=== PATIENT | female | born 1965 | race Two or more races ===

== ENCOUNTER 2025-03-25 21:03 | Inpatient (IN) | payer BC, SELFPAY ==
[2025-03-25 21:06] VITALS: BP 136/56; PULSE 125; RESP 24; TEMP 38.4; O2SAT 93
[2025-03-25 21:12] VITALS: PULSE 130; O2SAT 94; BMI 43.1
--- NOTE | 2025-03-25 21:33 | PD.EDFEVER ---
ED Fever RME/HPI General Chief Complaint: Urogenital-Female Stated Complaint: UTI Time Seen by Provider: 03/25/25 21:32 Arrival date/time: 03/25/25 21:03 RME / HPI RME / HPI Narrative: See MDM for Dr. Cosme's HPI Documentation. Related Data Home Medications ?Medication ?Instructions ?Recorded ?Confirmed azelastine 0.05 % eye drops 1 drp ophthalmic (eye) QDAY PRN 03/26/25 03/26/25 Allergies ergocalciferol (vitamin D2) 1,250 1,250 mcg PO .weekly 03/26/25 03/26/25 mcg (50,000 unit) capsule metformin 500 mg tablet 500 mg PO BID 03/26/25 03/26/25 naproxen 500 mg tablet 500 mg PO Q12H PRN pain 03/26/25 03/26/25 Allergies Allergy/AdvReac Type Severity Reaction Status Date / Time No Known Allergies Allergy Verified 03/26/25 08:58 Review of Systems Review of Systems Systems Reviewed: All systems reviewed, normal except as documented Past Medical History Past Medical History ENDOCRINE: Positive Diabetes Mellitus Type 2 Physical Exam Narrative Physical exam: See MDM for Dr. Cosme's Physical Exam Documentation. ED Exam Narrative Physical exam: See MDM for Dr. Cosme's Physical Exam Documentation. Course Course Course Narrative: CXR was ordered for determining the etiology of shortness of breath. Quality Measures none Orders Category Date Time Status Bedside COVID-19 Antigen Test NOW Care 03/25/25 21:33 Active Bedside Influenza A&B Antigen Test NOW Care 03/25/25 21:33 Completed EKG (ED ONLY) *Do not use* NOW Care 03/25/25 21:36 Completed Saline [Insert IV] NOW Care 03/25/25 21:33 Completed Straight [In and Out Catheter] X1 Care 03/25/25 21:[address] chest abdomen pelvis wo Stat Exams 03/25/25 21:36 Completed EKG (ED Only) Stat Exams 03/25/25 21:35 Draft XR chest 1V portable Stat Exams 03/25/25 21:36 Completed Amylase Stat Lab 03/26/25 00:55 Completed BNP [B-Type Natriuretic Peptide] Stat Lab 03/26/25 00:15 Completed Beta Hydroxybutyrate Stat Lab 03/26/25 00:55 Completed Bilirubin,Direct Stat Lab 03/26/25 00:55 Completed Blood Culture (Lab) Stat Lab 03/26/25 00:15 Results CBC Stat Lab 03/26/25 00:15 Completed CMP [Comprehensive Metabolic Panel] Stat Lab 03/26/25 00:55 Completed CRP [C-Reactive Protein] Stat Lab 03/26/25 00:55 Completed ESR [Sed Rate (ESR)] Stat Lab 03/26/25 00:15 Completed Lactate (Lactic Acid) Stat Lab 03/26/25 00:15 Completed Lipase Stat Lab 03/26/25 00:55 Completed Magnesium Stat Lab 03/26/25 00:55 Completed Procalcitonin Stat Lab 03/26/25 00:55 Completed TSH [Thyroid Stimulating Hormone] Stat Lab 03/26/25 00:55 Completed Troponin I Stat Lab 03/26/25 00:55 Completed UA, C/S IF [Urinalysis, C/S if Indicated] Stat Lab 03/26/25 00:30 Completed Urine Culture Stat Lab 03/26/25 00:30 Received Acetaminophen Ivpb [Ofirmev Inj] Med 03/25/25 21:33 Discontinued 1,000 mg in 100 ml IV X1 Albuterol/Ipratr Rt Kathy [Duoneb Rt Kathy] Med 03/25/25 21:34 Discontinued 3 ml INH X1 ONE Ketorolac Inj [Toradol Inj] Med 03/25/25 21:33 Discontinued 30 mg IVP X1 ONE Magnesium Sulfate 2 GM Ivpb [Magnesium Sulfate Ivpb] Med 03/26/25 02:27 Discontinued 2 gm in 50 ml IV X1 MethylPREDNISolone.* [SoluMEDROL Inj] Med 03/25/25 21:35 Discontinued 125 mg IVP X1 ONE Morphine Inj Med 03/25/25 21:34 Discontinued 4 mg IVP X1 ONE Ondansetron Inj [Zofran Inj] Med 03/25/25 21:33 Discontinued 4 mg IVP X1 ONE Sodium Chloride 0.9% 1000 ml [Ns] 1,000 ml Med 03/25/25 21:33 Discontinued IV 999 mls/hr Sodium Chloride 0.9% 1000 ml [Ns] 1,000 ml Med 03/25/25 21:33 Discontinued IV 999 mls/hr Sodium Chloride 0.9% 1000 ml [Ns] 1,000 ml Med 03/25/25 21:34 Discontinued IV 999 mls/hr cefTRIAXone/D5w 1gm IV premix [Rocephin/D5w 1gm IV Med 03/25/25 21:33 Discontinued premix] 1 gm in 50 ml IV X1 Vital Signs Vital signs: Vital Signs Temperature 101.2 F H 03/25/25 21:06 Pulse Rate 125 H 03/25/25 21:06 Respiratory Rate 24 H 03/25/25 21:06 Blood Pressure 136/56 H 03/25/25 21:06 Pulse Oximetry (%) 93 L 03/25/25 21:06 Oxygen Delivery Method Room Air 03/25/25 21:06 Fever MDM Narrative MDM Narrative:: Scribe Attestation: I, Sheela Hagen, am scribing for and in the presence of Dr. Cosme. This section includes all my notes and documentations, including HPI, PE, and ED course. Ronen Cosme MD HPI: 60 y/o female with Hx of Type II DM BIBA from home here with fever, chills, body aches, and lower back pain x 1 week. No other complaints. ROS: All negative except as documented in HPI. Physical Exam: General: Alert and oriented. Appearance of malaise noted. Fever noted. Eyes: Conjunctivae and lids clear. ENT: No nasal congestion. Neck: Supple. Heart: Sinus tachycardia noted. Lungs: No respiratory distress. Decreased air movement with rhonchi. Abdomen: Soft with equivocal tenderness, difficult to localize. Normal bowel sounds. No distension. No rebound or guarding. Back: Equivocal CVA tenderness. Skin: Warm and dry. Neuro: Alert and oriented X 3. I reviewed EMS notes. I reviewed all diagnostic test results: My interpretation of the EKG is: Sinus tachycardia (119 bpm) with nonspecific ST-T changes. My interpretation of the chest x-ray is NAD. My review of the Chest/Abdomen/Pelvis CT report is: Bilateral prominent perinephric stranding suspicious for urinary tract infection. Blood tests remarkable for WBC 15, Glu 371, Mg 1.5, LA 4.6, CRP 13.5, Procalcitonin 6.02, and Troponin 0.20. UA showed positive nitrite, positive leuokocyte esterase, 424 RBC, 3264 WBC, and 4+ bacteria. Covid/Influenza: Negative. At this point, diagnoses include: Sepsis Pyelonephritis Troponin elevation Hyperglycemia Hypomagnesemia Bronchospasm Treatment here included: 3 L of IVF Toradol 30 mg IV and Tylenol 1000 mg IV DuoNeb and Solumedrol 125 mg IV Rocephin 1 gram IV Morphine 4 mg IV and Zofran 4 mg IV 0317: I discussed the case with our hospitalist. About the presentation and exam and diagnostics and treatments here. And need of further care in the hospital. Will accept the patient. Ronen Cosme MD Patient data External records reviewed:: [facility] previous records (No recent ED records available for review.) and EMS form Clinical information provided by:: patient and EMS Social determinants that could affect healthcare access:: none Patient has the following chronic illnesses:: Type II DM How is presenting disease/condition affected by chronic disease/condition?: exacerbated by Evaluation data The following diagnostics were reviewed and interpreted by me:: lab results, radiology exam(s) and EKG tracing(s) (My interpretation of the EKG is: Sinus tachycardia (119 bpm) with nonspecific ST-T changes. Ronen Cosme MD) Lab and/or radiology exams considered but not ordered:: None Interpretation Summary: I reviewed all diagnostic test results: My interpretation of the EKG is: Sinus tachycardia (119 bpm) with nonspecific ST-T changes. My interpretation of the chest x-ray is NAD. My review of the Chest/Abdomen/Pelvis CT report is: Bilateral prominent perinephric stranding suspicious for urinary tract infection. Blood tests remarkable for WBC 15, Glu 371, Mg 1.5, LA 4.6, CRP 13.5, Procalcitonin 6.02, and Troponin 0.20. UA showed positive nitrite, positive leuokocyte esterase, 424 RBC, 3264 WBC, and 4+ bacteria. Covid/Influenza: Negative. Medications / Prescriptions Medications or Prescriptions considered but not ordered:: None Medication administrations:: Medication Administration History Acetaminophen (Acetaminophen 325 Mg Tablet) 650 mg PO Q6H PRN PRN Reason: Fever >100.4 or pain 1-3 Stop: 04/25/25 03:10 Hydrocodone Bitart/Acetaminophen (Hydrocodone/Apap 5/325 Tablet) 1 tab PO Q4HR PRN PRN Reason: PAIN SCALE 4-6 (Moderate Stop: 03/31/25 03:15 Dextrose (Dextrose 50%-Water Inj 50 Ml Syringe) 25 ml IV Q15MIN PRN PRN Reason: BG 50-70 responsive npo pt Stop: 04/25/25 03:15 Dextrose (Dextrose 50%-Water Inj 50 Ml Syringe) 50 ml IV Q15MIN PRN PRN Reason: BG <50 OR BG <70 & pt unresponsive Stop: 04/25/25 03:15 Docusate Sodium (Docusate Sod 100 Mg Capsule) 100 mg PO QDAY PRN; Protocol PRN Reason: CONSTIPATION Stop: 04/25/25 03:10 Enoxaparin Sodium (Enoxaparin Sod Inj 40 Mg/0.4 Ml Syringe) 40 mg SC QDAY [facility] Stop: 04/09/25 08:59 Last Admin: 03/27/25 08:13 Dose: 40 mg Documented By: Admin: 03/26/25 09:50 Dose: 40 mg Documented By: ELVIA Glucagon (Glucagon Inj 1 Mg Vial) 1 mg IM Q15MIN PRN PRN Reason: BG <70, and no IV access Ceftriaxone Sodium 2 gm/ (Sodium Chloride) 50 mls @ 100 mls/hr IV QDAY [facility] Stop: 04/03/25 08:59 Last Admin: 03/27/25 08:13 Dose: 100 mls/hr Documented By: BEBETO Insulin Degludec (Insulin Degludec 5 Unit/0.05 Ml (Per 5 Units)) 20 unit SC QDAY [facility] Stop: 04/27/25 08:59 Insulin Human Lispro (Insulin Lispro (Admelog) 1 Unit/0.01 Ml Unit) 0 unit SC [facility]; Protocol Stop: 04/25/25 11:29 Last Admin: 03/27/25 17:48 Dose: 5 unit Documented By: BEBETO Co-signed By: GLORIA Admin: 03/27/25 11:49 Dose: 5 unit Documented By: BEBETO Co-signed By: GLORIA Admin: 03/27/25 07:51 Dose: 5 unit Documented By: BEBETO Co-signed By: ALEX Admin: 03/26/25 17:52 Dose: 5 unit Documented By: ELVIA Co-signed By: RODNEY Insulin Human Lispro (Insulin Lispro (Admelog) 1 Unit/0.01 Ml Unit) 3 unit SC [facility] Stop: 04/26/25 16:59 Last Admin: 03/27/25 17:49 Dose: 3 unit Documented By: BEBETO Co-signed By: GLORIA Ondansetron HCl (Ondansetron Inj 2 Mg/Ml Inj 2 Ml) 4 mg IVP Q6H PRN; Protocol PRN Reason: NAUSEA OR VOMITING Stop: 04/25/25 03:10 Sennosides (Senna Tablet) 1 tab PO QDAY PRN; Protocol PRN Reason: constipation Stop: 04/25/25 03:10 Discontinued Medications Albuterol/Ipratropium (Albuterol/Ipratropium (Duoneb) Rt Kathy 3 Ml Nebu) 3 ml INH X1 ONE Stop: 03/25/25 21:35 Last Admin: 03/25/25 22:18 Dose: 3 ml Documented By: ELVIA(2) Ceftriaxone Sodium/Dextrose (Rocephin/D5w 1gm Iv Premix) 1 gm in 50 mls @ 100 mls/hr IV X1 ONE Stop: 03/25/25 22:02 Last Infusion: 03/25/25 23:09 Dose: Infused Documented By: Admin: 03/25/25 22:34 Dose: 100 mls/hr Documented By: NITA Sodium Chloride (Ns) 1,000 mls @ 999 mls/hr IV .Q1H1M ONE Stop: 03/25/25 22:33 Last Infusion: 03/25/25 23:12 Dose: Infused Documented By: Admin: 03/25/25 22:09 Dose: 999 mls/hr Documented By: NITA Acetaminophen (Ofirmev Inj) 1,000 mg in 100 mls @ 250 mls/hr IV X1 ONE Stop: 03/25/25 21:56 Last Infusion: 03/25/25 22:34 Dose: Infused Documented By: Admin: 03/25/25 22:10 Dose: 250 mls/hr Documented By: NITA Sodium Chloride (Ns) 1,000 mls @ 999 mls/hr IV .Q1H1M ONE Stop: 03/25/25 22:33 Last Infusion: 03/25/25 23:12 Dose: Infused Documented By: Admin: 03/25/25 22:10 Dose: 999 mls/hr Documented By: NITA Sodium Chloride (Ns) 1,000 mls @ 999 mls/hr IV .Q1H1M ONE Stop: 03/25/25 22:34 Last Infusion: 03/26/25 00:15 Dose: Infused Documented By: Admin: 03/25/25 23:14 Dose: 999 mls/hr Documented By: NITA Magnesium Sulfate (Magnesium Sulfate Ivpb) 2 gm in 50 mls @ 25 mls/hr IV X1 ONE Stop: 03/26/25 04:26 Last Infusion: 03/26/25 05:20 Dose: Infused Documented By: Admin: 03/26/25 03:11 Dose: 25 mls/hr Documented By: NITA Magnesium Sulfate (Magnesium Sulfate Ivpb) 2 gm in 50 mls @ 25 mls/hr IV X1 ONE Stop: 03/26/25 05:36 Last Infusion: 03/26/25 07:33 Dose: Infused Documented By: Admin: 03/26/25 05:33 Dose: 25 mls/hr Documented By: NITA Ceftriaxone Sodium 2 gm/ (Sodium Chloride) 50 mls @ 100 mls/hr IV X1 ONE Stop: 03/26/25 09:29 Last Admin: 03/26/25 09:55 Dose: 100 mls/hr Documented By: ELVIA Insulin Degludec (Insulin Degludec 5 Unit/0.05 Ml (Per 5 Units)) 15 unit SC QDAY [facility] Stop: 04/25/25 08:59 Last Admin: 03/27/25 08:14 Dose: 15 unit Documented By: BEBETO Co-signed By: BRITTANY Admin: 03/26/25 09:50 Dose: 15 unit Documented By: ELVIA Co-signed By: RODNEY Insulin Degludec (Insulin Degludec 5 Unit/0.05 Ml (Per 5 Units)) 5 unit SC X1 ONE Stop: 03/27/25 11:51 Last Admin: 03/27/25 12:21 Dose: 5 unit Documented By: BEBETO Co-signed By: ALEX Insulin Human Lispro (Insulin Lispro (Admelog) 1 Unit/0.01 Ml Unit) 0 unit SC AC [facility]; Protocol Stop: 04/25/25 07:29 Last Admin: 03/26/25 08:30 Dose: 4 unit Documented By: ELVIA Co-signed By: VANGIE Insulin Human Lispro (Insulin Lispro (Admelog) 1 Unit/0.01 Ml Unit) 0 unit SC AC [facility]; Protocol Stop: 04/25/25 11:29 Last Admin: 03/26/25 12:07 Dose: 5 unit Documented By: ELVIA Co-signed By: KAMRAN Ketorolac Tromethamine (Ketorolac Inj 30 Mg/Ml Vial) 30 mg IVP X1 ONE Stop: 03/25/25 21:34 Last Admin: 03/25/25 22:18 Dose: Not Given Documented By: NITA Non-Admin Reason: Patient Refused Methylprednisolone Sodium Succinate (Methylprednisolone Sod Succ 62.5 Mg/Ml 2ml Vial) 125 mg IVP X1 ONE Stop: 03/25/25 21:36 Last Admin: 03/25/25 22:13 Dose: 125 mg Documented By: NITA Morphine Sulfate (Morphine Sulf Inj 10 Mg/Ml Vial) 4 mg IVP X1 ONE Stop: 03/25/25 21:35 Last Admin: 03/25/25 22:14 Dose: Not Given Documented By: NITA Non-Admin Reason: Patient Refused Ondansetron HCl (Ondansetron Inj 2 Mg/Ml Inj 2 Ml) 4 mg IVP X1 ONE; Protocol Stop: 03/25/25 21:34 Last Admin: 03/25/25 22:18 Dose: 4 mg Documented By: NITA Potassium Phos/Sodium Phos (Naph,[facility] 1 Packet (1.5 Gm)) 1 packet PO X1 ONE Stop: 03/27/25 16:44 Last Admin: 03/27/25 17:49 Dose: 1 packet Documented By: BEBETO Treatment here included: 3 L of IVF Toradol 30 mg IV and Tylenol 1000 mg IV DuoNeb and Solumedrol 125 mg IV Rocephin 1 gram IV Morphine 4 mg IV and Zofran 4 mg IV Consultations Consultation(s) initiated? (list below): Yes Consultation #1 (Physician, Specialty, Details): I discussed the case with our hospitalist. About the presentation and exam and diagnostics and treatments here. And need of further care in the hospital. Will accept the patient. Time: 03:17 Diagnosis Fever Differential Diagnosis: cellulitis, fever of unknown origin, gastroenteritis, community acquired pneumonia, pyelonephritis, viral infection, sepsis, influenza and other (Cystitis, UTI) Most likely diagnosis given after review of the tests above:: At this point, diagnoses include: Sepsis Pyelonephritis Troponin elevation Hyperglycemia Hypomagnesemia Bronchospasm Admission Indicated Admission indicated?: indicated Explain why admission is indicated or not indicated:: Sepsis Admission Request Was there a request for admission?: Yes Admission Attestation Admission request attestation: Discussed case with Hospitalist service regarding admission. Discussed patients ED course, exam findings, labs, and radiology results. Agreed to accept the patient for admission. Disposition Plan Disposition Plan: Admit Discharge Plan Plan Patient Disposition: Admit Acute Care w/in Hospital Problem List Clinical Impression: Sepsis, Pyelonephritis, Elevated troponin, Hypomagnesemia, Hyperglycemia, Bronchospasm
--- NOTE | 2025-03-25 21:35 | EKG_ITS ---
[facility] (Formerly [facility]) Test Date: 2025-03-25 Pat Name: ESPERANZA SOLARES Department: Room: - Gender: Female Director Of Integrated Marketing: : 1965 Requested By: Ronen Aguiar Order Number: [id number] Reading MD: Ronen Aguiar Measurements Intervals [place] Rate: 119 P: -6 [place]: 146 QRS: 22 QRSD: 89 T: 33 QT: 340 QTc: 479 Interpretive Statements SINUS TACHYCARDIA LOW QRS VOLTAGE IN PRECORDIAL LEADS [QRS DEFLECTION < 1.0 mV IN CHEST LEADS] NONSPECIFIC T-WAVE ABNORMALITY ABNORMAL RHYTHM ECG No previous ECG available for comparison /store/S0/[id number]/ecg/[id number].pdf
--- NOTE | 2025-03-25 21:36 | XR_ITS ---
Examination: CT chest, without intravenous contrast. CT abdomen, without intravenous contrast. CT pelvis, without intravenous contrast. 2-D sagittal and coronal reconstructions. 3-D reconstructions. Date and time of exam:March 25, 2025, 2158 hours INDICATIONS: Coughing and shortness of breath bilateral flank pain today, clinical diagnosis urinary tract infection CTDI vol (mgy) 13.9 DLP (MGycm)1040 Technique: Multiple CT images, 3.0 mm slice thickness, obtained chest, abdomen, pelvis, with the high-resolution 64 slice scanner.. Sagittal and coronal 2-D reconstructions are obtained. 3-D reconstructions Low dose protocols were performed. One or more of the following dose reduction techniques were used; automated exposure control, adjustment of the mA and/or KV according to patient size, use of iterative reconstruction technique. Findings: Thoracic aorta is not enlarged Main pulmonary artery segment 33 mm No paratracheal tracheobronchial or bronchopulmonary adenopathy No pneumonia or pulmonary edema No visualized liver or splenic lesion Multiple gallstones, possible gallbladder wall thickening No pancreatic mass Normal adrenal glands Prominent perinephric stranding No renal or ureteral calculi, no hydronephrosis Normal appendix No bowel obstruction Colonic diverticulosis, no diverticulitis Urinary bladder wall thickening up to 8 mm Atrophic anteverted uterus No adnexal mass Moderate osteopenia IMPRESSION: No mediastinal pathologic lymphadenopathy No pneumonia pulmonary edema or pleural disease Bilateral prominent perinephric stranding suspicious for urinary tract infection Cystitis pattern Normal appendix
--- NOTE | 2025-03-25 21:36 | XR_ITS ---
Examination: AP chest single view FINDINGS: AP portable semiupright chest single view Presented time: March 25, 2025, 2140 hours Comparison December 31, 2018 INDICATION: Shortness of breath chest pain and fever coughing beginning today. FINDINGS: Mild prominence left ventricle Mild vascular congestion. No lobar pneumonia or pulmonary edema. Moderate osteopenia. IMPRESSION: Mild vascular congestion
[2025-03-25] MEDS: SODIUM CHLORIDE 0.9% 1000 ML 1,000 ML 999 ML IV ×3 (22:09→23:14)
[2025-03-25] MEDS: ACETAMINOPHEN IVPB 1,000 MG/100 ML VIAL 250 MG IV (22:10)
[2025-03-25] MEDS: MethylPREDNISolone SOD SUCC 62.5 MG/ML 2ML VIAL 125 MG IVP (22:13)
[2025-03-25] MEDS: ONDANSETRON INJ 2 MG/ML INJ 2 ML 4 MG IVP (22:18)
[2025-03-25] MEDS: ALBUTEROL/IPRATROPIUM (Duoneb) RT SOL 3 ML NEBU INH (22:18)
[2025-03-25 22:22] VITALS: PULSE 118; RESP 26; O2SAT 93
[2025-03-25] MEDS: cefTRIAXone/D5w 1gm IV premix 1 GM/50 ML BAG IV (22:34)
[2025-03-25 23:00] VITALS: BP 113/64; PULSE 114; RESP 19; TEMP 38.7; O2SAT 97
[2025-03-26] VITALS (11 sets, daily range): BP systolic 106–136; BP diastolic 66–80; PULSE 18–111; RESP 18–99; TEMP 36.2–36.7; O2SAT 93–96; BMI 43.5; BMI 43.8
[2025-03-26 00:42] LABS: Sed Rate (ESR) 46 mm/hr (0-30)
[2025-03-26 00:44] LABS: Basophils # (Auto) 0.1 Thou/mm3 (0.0-0.2); Basophils % (Auto) 0 % (0-2.5); Eosinophils # (Auto) 0.1 Thou/mm3 (0.0-0.5); Eosinophils % (Auto) 0 % (0-10); Hematocrit 46.0 % (36.0-46.0); Hemoglobin 15.7 g/dL (12.0-16.0); Immature Granulocytes Auto 0.10 Thou/mm3 (0.00-0.00); Lymphocytes # (Auto) 3.4 Thou/mm3 (1.0-4.8); Lymphocytes % (Auto) 23 % (10-50); Mean Corpuscular HGB Conc 34.1 g/dl (31.0-37.0); Mean Corpuscular Hemoglobin 30.0 pg (25.0-35.0); Mean Corpuscular Volume 88 fL (80-100); Monocytes # (Auto) 0.5 Thou/mm3 (0.0-0.8); Monocytes % (Auto) 4 % (0-12); Neutrophils # (Auto) 10.8 Thou/mm3 (1.8-7.7); Neutrophils % (Auto) 72 % (37-80); Nucleated Red Blood Cell # 0.00 Thou/mm3 (0.00-0.00); Nucleated Red Blood Cell % 0 /100 WBC (0); Platelet Count 229 Thou/mm3 (140-440); RDW Standard Deviation 40.7 fL (36.4-46.3); Red Blood Count 5.23 Miln/mm3 (4.00-5.20); White Blood Count 15.0 Thou/mm3 (3.6-11.0)
[2025-03-26 00:56] LABS: Collection Type, Urine Clean Catch
[2025-03-26 00:57] LABS: B-Type Natriuretic Peptide < 20 pg/mL (0-100)
[2025-03-26 01:00] LABS: Lactate (Lactic Acid) 4.6 mMol/L (0.4-2.0)
[2025-03-26 01:02] LABS: Bacteria,Urine 4+; Bilirubin,Urine Negative (Negative); Blood,Urine 3+ (Negative); Budding Yeast,Urine Present; Color,Urine Drk-Yellow (Lt Yel-Yel); Glucose, Urine 4+ (Negative); Ketones,Urine 1+ (Negative); Leukocyte Esterase,Urine Positive (Negative); Nitrite,Urine Positive (Negative); PH,Urine 6.0 (5.0-7.0); Protein,Urine 2+ (Neg - Trace); RBC,Urine 424 /hpf (0-3); Specific Gravity,Urine 1.031 (1.001-1.035); Squamous Epithelial Cell,Urine 7 /hpf (0-5); Urobilinogen,Urine 2.0 mg/dL (0.0-1.0); WBC,Urine 3264 /hpf (0-5)
[2025-03-26 01:03] LABS: Clarity,Urine Turbid (Clear/Hazy); Culture Indicated,Urine Yes
[2025-03-26 01:33] LABS: Beta Hydroxybutyrate 0.8 mmol/L (<0.6)
[2025-03-26 02:03] LABS: Alanine Aminotransferase 34 U/L (10-49); Albumin, Serum 3.6 gm/dL (3.5-5.0); Albumin/Globulin Ratio 1.6 (1.2-2.2); Alkaline Phosphatase 157 U/L (46-116); Amylase 27 U/L (30-118); Anion Gap 11 (7-16); Aspartate Amino Transferase 37 U/L (0-34); BUN/Creatinine Ratio 15 Ratio (12-20); Bilirubin,Direct 0.6 mg/dL (0.0-0.3); Bilirubin,Total 1.2 mg/dL (0.3-1.2); Blood Urea Nitrogen 9 mg/dL (9-23); C-Reactive Protein 13.5 mg/dL (0.0-0.9); Calcium 9.1 mg/dL (8.3-10.6); Calcium (Corrected) 9.4 mg/dL (8.5-10.1); Carbon Dioxide 20.8 mMol/L (20.0-31.0); Chloride 108 mMol/L (98-107); Creatinine (Component) 0.6 mg/dL (0.6-1.3); Estimated Creatinine Clearance 116.2 mL/min (>60); Globulin 2.3 gm/dL (2.3-3.5); Glucose 371 mg/dL (74-106); Lipase 23 U/L (12-53); Magnesium 1.5 mg/dL (1.6-2.6); Osmolality,Calculated 293 (275-295); Potassium 3.7 mMol/L (3.4-5.1); Procalcitonin 6.02 ng/ml (0.0-0.49); Sodium 140 mMol/L (136-145); Thyroid Stimulating Hormone 0.76 uIU/mL (0.55-4.78); Total Protein 5.9 gm/dL (5.7-8.2); eGFR > 60 See Note
[2025-03-26 02:05] LABS: Troponin I 0.200 ng/mL (0.0-0.045)
[2025-03-26] MEDS: Magnesium Sulfate 2 GM Ivpb 2 GM/50 ML BAG IV ×2 (03:11→05:33)
--- NOTE | 2025-03-26 03:23 | ESHP_ITS ---
Documentation for date of: 03/26/25 HPI History of Present Illness Chief complaint: Fevers, chills, dysuria History of present illness: 60 y/o F with PMHx significant for pkc-qyeyjip-uwoaaknpb diabetes presents from home with chief complaint of dysuria x 1 week and fever/chills x 2 days. Patient states she began experiencing dysuria approximately a week ago but initially ignored it. Symptoms did not resolve prompted her to visit her PCP who prescribed her some antibiotic, unsure which. Despite taking antibiotic, patient developed fevers and chills, also reports nausea with 1 episode of vomiting. Patient also complains of mild shortness of breath starting today. Denies chest pain, abdominal pain. ED COURSE: Labs significant for: WBC 15. Magnesium 1.5, lactic acid 4.6, troponin 0.2. CRP 13.5, ESR 46, Pro-Earl 6. Urinalysis shows 3+ blood, positive nitrates, 44 RBCs, 3000 WBCs, 4+ bacteria. EKG shows sinus tachycardia. Chest x-ray shows vascular congestion. CT A/P shows cystitis, bilateral perinephric stranding consistent with pyelonephritis. On presentation patient had fever 101.2, tachycardic 125, 24 respirations, saturating 93% on room air. Patient was placed on oxy mask at 6 L/min with improvement in O2 sats, given Tylenol, 3 L bolus normal saline, morphine, steroids, Rocephin. PMH: Diabetes PSH: Umbilical hernia repair SH: Denies alcohol, tobacco, illicit drug use Allergies:?NKDA Medications: Metformin Review of Systems Review of Systems Systems Reviewed: All systems reviewed, normal except as documented Past Medical History Past Medical History Comments PMH COMMENT: PMH: Diabetes PSH: Umbilical hernia repair SH: Denies alcohol, tobacco, illicit drug use Allergies:?NKDA Medications: Metformin Exam Vital Signs Temp Pulse Resp BP Pulse Ox O2 Del Method O2 Flow Rate 97.6 F 110 H 18 136/79 H 95 Room Air 2 03/26/25 01:51 03/26/25 01:51 03/26/25 01:51 03/26/25 01:51 03/26/25 01:51 03/26/25 01:51 03/25/25 23:00 Narrative Exam PE: Gen: Well-developed and well-nourished. Obese. HEENT: NCAT, PERRLA, EOMI, MMM, anicteric conjunctivae. CVS: normal S1 and S2. RRR. No M/R/G. Resp: CTA B/L. No rhonchi, rales, crackles or wheezing. Poor lung sounds due to body habitus. Abd: soft, non-tender, non-distended. BS+ in all 4 quadrants. MSK: Good ROM in BUE & BLE. No edema or rash. No CVA tenderness. Neuro: CN II-XII grossly intact. Strength 5/5 in BUE & BLE. Alert and oriented x3. Psych: appropriate mood and affect. Results: Labs 03/26/25 03:35 03/26/25 03:35 Labs: Short CBC 03/25/25 Range/Units 21:25 WBC 15.0 H (3.6-11.0) Thou/mm3 Hgb 15.7 (12.0-16.0) g/dL Hct 46.0 (36.0-46.0) % Plt Count 229 (140-440) Thou/mm3 BMP 03/26/25 00:55 Sodium 140 Potassium 3.7 Chloride 108 H Carbon Dioxide 20.8 BUN 9 Creatinine 0.6 Glucose 371 H Calcium 9.1 Cardiac Enzymes 03/26/25 Range/Units 00:55 Troponin I 0.200 H* (0.0-0.045) ng/mL Liver Function 03/26/25 Range/Units 00:55 Total Bilirubin 1.2 (0.3-1.2) mg/dL Direct Bilirubin 0.6 H (0.0-0.3) mg/dL AST 37 H (0-34) U/L ALT 34 (10-49) U/L Alkaline Phosphatase 157 H (46-116) U/L Albumin 3.6 (3.5-5.0) gm/dL Urine 03/26/25 Range/Units 00:30 Urine Color Drk-Yellow A (Lt Yel-Yel) Urine Clarity Turbid A (Clear/Hazy) Urine pH 6.0 (5.0-7.0) Ur Specific [place] 1.031 (1.001-1.035) Urine Protein 2+ A (Neg - Trace) Urine Glucose (UA) 4+ A (Negative) Quality Measures Quality Measures VTE prophylaxis Medications Home Medications and Allergies Allergies Allergy/AdvReac Type Severity Reaction Status Date / Time No Known Allergies Allergy Verified 09/15/19 18:30 Visit Medications Acetaminophen (Acetaminophen 325 Mg Tablet) 650 mg PO Q6H PRN PRN Reason: Fever >100.4 or pain Stop: 04/25/25 03:10 Hydrocodone Bitart/Acetaminophen (Hydrocodone/Apap 5/325 Tablet) 1 tab PO Q4HR PRN PRN Reason: PAIN SCALE 4-6 (Moderate Stop: 03/31/25 03:15 Dextrose (Dextrose 50%-Water Inj 50 Ml Syringe) 25 ml IV Q15MIN PRN PRN Reason: BG 50-70 responsive npo pt Stop: 04/25/25 03:15 Dextrose (Dextrose 50%-Water Inj 50 Ml Syringe) 50 ml IV Q15MIN PRN PRN Reason: BG <50 OR BG <70 & pt unresponsive Stop: 04/25/25 03:15 Docusate Sodium (Docusate Sod 100 Mg Capsule) 100 mg PO QDAY PRN; Protocol PRN Reason: CONSTIPATION Stop: 04/25/25 03:10 Enoxaparin Sodium (Enoxaparin Sod Inj 40 Mg/0.4 Ml Syringe) 40 mg SC QDAY KARLA Stop: 04/09/25 08:59 Glucagon (Glucagon Inj 1 Mg Vial) 1 mg IM Q15MIN PRN PRN Reason: BG <70, and no IV access Magnesium Sulfate (Magnesium Sulfate Ivpb) 2 gm in 50 mls @ 25 mls/hr IV X1 ONE Stop: 03/26/25 04:26 Last Admin: 03/26/25 03:11 Dose: 25 mls/hr Ceftriaxone Sodium 2 gm/ (Sodium Chloride) 50 mls @ 100 mls/hr IV QDAY KARLA Stop: 04/02/25 08:59 Insulin Human Lispro (Insulin Lispro (Admelog) 1 Unit/0.01 Ml Unit) 0 unit SC AC KARLA; Protocol Stop: 04/25/25 07:29 Ondansetron HCl (Ondansetron Inj 2 Mg/Ml Inj 2 Ml) 4 mg IVP Q6H PRN; Protocol PRN Reason: NAUSEA OR VOMITING Stop: 04/25/25 03:10 Sennosides (Senna Tablet) 1 tab PO QDAY PRN; Protocol PRN Reason: constipation Stop: 04/25/25 03:10 Discontinued Medications Albuterol/Ipratropium (Albuterol/Ipratropium (Duoneb) Rt Kathy 3 Ml Nebu) 3 ml INH X1 ONE Stop: 03/25/25 21:35 Last Admin: 03/25/25 22:18 Dose: 3 ml Ceftriaxone Sodium/Dextrose (Rocephin/D5w 1gm Iv Premix) 1 gm in 50 mls @ 100 mls/hr IV X1 ONE Stop: 03/25/25 22:02 Last Infusion: 03/25/25 23:09 Dose: Infused Sodium Chloride (Ns) 1,000 mls @ 999 mls/hr IV .Q1H1M ONE Stop: 03/25/25 22:33 Last Infusion: 03/25/25 23:12 Dose: Infused Acetaminophen (Ofirmev Inj) 1,000 mg in 100 mls @ 250 mls/hr IV X1 ONE Stop: 03/25/25 21:56 Last Infusion: 03/25/25 22:34 Dose: Infused Sodium Chloride (Ns) 1,000 mls @ 999 mls/hr IV .Q1H1M ONE Stop: 03/25/25 22:33 Last Infusion: 03/25/25 23:12 Dose: Infused Sodium Chloride (Ns) 1,000 mls @ 999 mls/hr IV .Q1H1M ONE Stop: 03/25/25 22:34 Last Infusion: 03/26/25 00:15 Dose: Infused Ketorolac Tromethamine (Ketorolac Inj 30 Mg/Ml Vial) 30 mg IVP X1 ONE Stop: 03/25/25 21:34 Last Admin: 03/25/25 22:18 Dose: Not Given Methylprednisolone Sodium Succinate (Methylprednisolone Sod Succ 62.5 Mg/Ml 2ml Vial) 125 mg IVP X1 ONE Stop: 03/25/25 21:36 Last Admin: 03/25/25 22:13 Dose: 125 mg Morphine Sulfate (Morphine Sulf Inj 10 Mg/Ml Vial) 4 mg IVP X1 ONE Stop: 03/25/25 21:35 Last Admin: 03/25/25 22:14 Dose: Not Given Ondansetron HCl (Ondansetron Inj 2 Mg/Ml Inj 2 Ml) 4 mg IVP X1 ONE; Protocol Stop: 03/25/25 21:34 Last Admin: 03/25/25 22:18 Dose: 4 mg Assessment & Plan Plan 60 y/o F with PMHx significant for sxy-ruzmasl-zsjsxmyra diabetes presents from home with chief complaint of dysuria x 1 week and fever/chills x 2 days, admitted for sepsis secondary to pyelonephritis. #Sepsis secondary to #Pyelonephritis #NSTEMI type II Patient presents with chief complaint dysuria x 1 week, fevers and chills x 1 day, nausea and 1 episode of vomiting. Patient also complains of shortness of breath. Labs show WBC 15, lactic acid 4.6, elevated CRP/ESR, Pro-Earl 6, troponin 0.2. Urinalysis shows 4-4 RBCs, 3000 WBCs, 4+ bacteria. CT A/P showed cystitis and bilateral perinephric stranding. On presentation patient tachycardic, tachypneic, temperature 101.2. Patient received 3 L bolus normal saline in the ED. Endorgan damage demonstrated by hypoxia and demand ischemia. Sofa score 2 - Rocephin 2 g IV daily (started 03/25) - O2 as needed to maintain sats greater than 92% - Trend lactate, IVF as needed - Trend troponin - Blood and urine cultures drawn, follow-up - Telemonitoring #Diabetes, bzu-cielqyq-fjetjcvee Patient history as stated. No A1c on file, patient reports A1c in August was approximately 10%. Currently treats with metformin. - ISS - A1c ordered, follow-up - Carb consistent diet DVT prophylaxis: Lovenox GI prophylaxis: None Diet: Carb consistent Lines: Peripheral IV Code status: Full code Plan of care discussed with attending Dr. Lewis. Ector Sylvester MD PGY?2 Attending Provider Attestation/Addendum I have examined the patient, reviewed labs and imaging findings, discussed the case with the resident(s), and reviewed entered orders. I agree with the plan of care as outlined in this note, with these additional summaries/recommendations: After examination of the patient and review of the clinical data, I feel that this patient needs admission to the hospital for further treatment and evaluation. Patient is a pleasant 60-year-old female with a medical history of wwm-xqyszsk-ngvhtwctv diabetes mellitus type 2, vitamin D deficiency, and obesity presents to [facility] emergency department on 03/26/2025 with chief complaint of urinary symptoms. Patient seen at bedside. She endorses dysuria, increased urinary frequency, and fever. Patient presented with Tmax 101.6 Fahrenheit, leukocytosis with left shift, elevated lactate, and elevated procalcitonin. Patient diagnosed with sepsis. Most likely source is urinary tract infection. CT of abdomen and pelvis revealed prominent bilateral perinephric fat stranding and patient diagnosed with pyelonephritis. Evidence of endorgan damage with elevated troponin. 30 cc/kg fluid resuscitation ordered. Start IV antibiotics. Follow- up blood and urine culture. No need for source control or pressors at this time. Lactic acidosis with lactate level 4.6. Most likely secondary to type a lactic acidosis from sepsis. Continue IV fluids and follow-up repeat level. Patient also noted to have elevated troponin. She has no cardiac complaints of chest pain or shortness of breath. EKG does not reveal any acute ST changes indicative of acute ischemia. Elevated troponin most likely secondary to demand ischemia unrelated to ACS or plaque rupture. Continue to trend troponin every 6 hours or until downtrend. Mild hypomagnesia present and replacement ordered. Repeat level in AM. Patient has diabetes mellitus type 2 with hyperglycemia. Blood sugar on admission 371. Start insulin sliding scale with Accu-Cheks. Order A1c. Target blood sugar of 140-180 while hospitalized. Patient updated on the plan and in agreement. All questions answered to satisfaction. Please see residents note for additional details and management. Dr. Debbie MD
[2025-03-26 03:25] LABS: Reflex Lactate? Y
[2025-03-26 03:59] LABS: Lactic Acid, 3 HR 1.1 mMol/L (0.4-2.0)
[2025-03-26 04:00] LABS: Basophils # (Auto) 0.0 Thou/mm3 (0.0-0.2); Basophils % (Auto) 0 % (0-2.5); Eosinophils # (Auto) 0.0 Thou/mm3 (0.0-0.5); Eosinophils % (Auto) 0 % (0-10); Hematocrit 43.5 % (36.0-46.0); Hemoglobin 14.7 g/dL (12.0-16.0); Immature Granulocytes Auto 0.17 Thou/mm3 (0.00-0.00); Lymphocytes # (Auto) 1.2 Thou/mm3 (1.0-4.8); Lymphocytes % (Auto) 6 % (10-50); Mean Corpuscular HGB Conc 33.8 g/dl (31.0-37.0); Mean Corpuscular Hemoglobin 30.2 pg (25.0-35.0); Mean Corpuscular Volume 89 fL (80-100); Monocytes # (Auto) 1.2 Thou/mm3 (0.0-0.8); Monocytes % (Auto) 6 % (0-12); Neutrophils # (Auto) 17.2 Thou/mm3 (1.8-7.7); Neutrophils % (Auto) 87 % (37-80); Nucleated Red Blood Cell # 0.00 Thou/mm3 (0.00-0.00); Nucleated Red Blood Cell % 0 /100 WBC (0); Platelet Count 236 Thou/mm3 (140-440); RDW Standard Deviation 41.9 fL (36.4-46.3); Red Blood Count 4.87 Miln/mm3 (4.00-5.20); White Blood Count 19.8 Thou/mm3 (3.6-11.0)
[2025-03-26 04:14] LABS: Glucose Estimated Average 298 mg/dL (80-131); Hemoglobin A1C 12.0 % Hgb (4.8-6.0)
[2025-03-26 05:09] LABS: Alanine Aminotransferase 40 U/L (10-49); Albumin, Serum 3.6 gm/dL (3.5-5.0); Albumin/Globulin Ratio 1.7 (1.2-2.2); Alkaline Phosphatase 162 U/L (46-116); Anion Gap 13 (7-16); Aspartate Amino Transferase 57 U/L (0-34); BUN/Creatinine Ratio 17 Ratio (12-20); Bilirubin,Total 1.5 mg/dL (0.3-1.2); Blood Urea Nitrogen 10 mg/dL (9-23); Calcium 9.3 mg/dL (8.3-10.6); Calcium (Corrected) 9.6 mg/dL (8.5-10.1); Carbon Dioxide 19.2 mMol/L (20.0-31.0); Cardiac Risk Estimate 2.8 RATIO (3.7-5.6); Chloride 108 mMol/L (98-107); Cholesterol 113 mg/dL (132-200); Creatinine (Component) 0.6 mg/dL (0.6-1.3); Estimated Creatinine Clearance 116.2 mL/min (>60); Globulin 2.1 gm/dL (2.3-3.5); Glucose 380 mg/dL (74-106); HDL Cholesterol 40 mg/dL (40-60); LDL Cholesterol,Calculated 54 mg/dL (0-130); Magnesium 1.9 mg/dL (1.6-2.6); Osmolality,Calculated 294 (275-295); Potassium 4.4 mMol/L (3.4-5.1); Sodium 140 mMol/L (136-145); Total Protein 5.7 gm/dL (5.7-8.2); Triglycerides 96 mg/dL (30-150); eGFR > 60 See Note
[2025-03-26 05:11] LABS: Troponin I 0.232 ng/mL (0.0-0.045)
[2025-03-26] MEDS: INSULIN LISPRO (AdmeLOG) 1 UNIT/0.01 ML UNIT SC ×3 (08:30→17:52)
[2025-03-26] MEDS: INSULIN DEGLUDEC 5 UNIT/0.05 ML (PER 5 UNITS) 15 UNIT SC (09:50)
[2025-03-26] MEDS: ENOXAPARIN SOD INJ 40 MG/0.4 ML SYRINGE SC (09:50)
[2025-03-26] MEDS: cefTRIAXone 2 GM in SODIUM CHLORIDE 0.9% (Popper) 50 ML IV (09:55)
[2025-03-26 12:01] LABS: Troponin I 0.223 ng/mL (0.0-0.045)
--- NOTE | 2025-03-26 13:27 | PC.SS ---
Patient is a 60 year old female presenting to the hospital for pyelonephritis. [employer] met with patient at bedside, role and reason was explained. Patient was alert and oriented. Patient confirmed demographics and stated that she lives with her son Kasi PH: [phone]. Patient stated that if she is unable to make medical decision for herself she would like Kasi to make them. She stated that her other son can also be reached at [phone] his name is Kuldip Wen. Patient stated that she does not use any DME at home, she has type 1 diabetes, is employed [employer]. Patients PCP is Dr. Delgado at [place] [address], her last appointment was in February 2025. Patient stated that once she is medically clear she would like to return home and her son will provide transportation. Patient stated she has no SS needs. D/c: home PCP: Dr. Delgado Decision maker: Kasi Wen PH: [phone].
--- NOTE | 2025-03-26 14:18 | ESPR_ITS ---
<Statement entered by Minh Wong MD - 03/27/25 16:24> Patient is seen at bedside. Currently endorses to feeling slightly better than when she first came into the ED. Patient states she had been having urinary symptoms for a while for which she went to primary care. Patient was also diagnosed with type 2 diabetes approximately 1 year ago and has been taking metformin 1000 mg twice daily. Patient is unaware of how uncontrolled her blood sugars are. Started patient on degludec 15 units with a sliding scale. Will continue to monitor patient's blood glucose and will increase as needed. Will continue IV antibiotics for now for UTI and pending urine culture. Patient was seen and examined by me personally. I have directly supervised and reviewed documentation by the team resident and agree with its findings. ------- Plan of care was discussed with the attending, Dr. Michelle Wong, PGY-2 Documentation for date of: 03/26/25 Subjective Subjective Interval history: Today patient was seen and examined at bedside. Supplemental well room air. Reports improvement of dysuria and denies nausea, vomiting. Still endorses intermittent mild headaches. AM reviews. Troponin downtrended to 0.223. Glucose 315, requested diabetes education for the patient. Patient acknowledges a tendency to snack and chew during work hours. She plans to improve her routine by switching to sugar-free options and reducing overall snacking. Vitals are remarklable for tachyrcardia 111, Resp 26 with blood pressure within normal limit. Upgrade insulin sliding scale to step 2 and started the patient on degludec 15 units. Will continue Rocephin 2 mg IV daily (03/25/25)- Exam Vital Signs Temp Pulse Resp BP Pulse Ox O2 Del Method O2 Flow Rate 97.3 F 111 H 26 H 120/80 94 L Room Air 2 03/26/25 12:00 03/26/25 12:00 03/26/25 12:00 03/26/25 12:00 03/26/25 12:03/26/25 12:03/25/25 23:00 Narrative Exam Physical Exam General: Awake and in no acute distress, obese, conversational and non-toxic appearing. HEENT: Normocephalic, atraumatic, mucous membranes moist. Heart: Regular rate and rhythm, normal S1 and S2, no murmurs. Lungs: Clear to auscultation with no wheezing or crackles. Abdomen: Soft, nondistended, nontender, positive bowel sounds. ?No guarding or rebound tenderness, No CVA tenderness Neurologic: Alert and oriented x3, no gross neurological deficit, and patient able to move all 4 extremities. Extremities: No edema. Skin: No rash or ecchymoses. Objective Labs 03/27/25 04:30 03/27/25 04:30 Labs: Laboratory Results - last 24 hr 03/25/25 03/26/25 03/26/25: 00:30 00:55 WBC 15.0 H RBC 5.23 H Hgb 15.7 Hct 46.0 MCV 88 MCH 30.0 MCHC 34.1 RDW Std Deviation 40.7 Plt Count 229 Neut % (Auto) 72 Lymph % (Auto) 23 [place] % (Auto) 4 Eos % (Auto) 0 Baso % (Auto) 0 Neut # (Auto) 10.8 H Lymph # (Auto) 3.4 [place] # (Auto) 0.5 Eos # (Auto) 0.1 Baso # (Auto) 0.1 Immature Gran # (Auto) 0.10 H Absolute Nucleated RBC 0.00 Immature Gran % 1 H Nucleated RBC % 0 ESR 46 H Sodium 140 Potassium 3.7 Chloride 108 H Carbon Dioxide 20.8 Anion Gap 11 BUN 9 Creatinine 0.6 Estim Creat Clear Calc 116.2 eGFR > 60 BUN/Creatinine Ratio [address] Glu mg/dL Hemoglobin A1c Calculated Osmolality 293 Lactic Acid 4.6 H* Calcium 9.1 Corrected Calcium 9.4 Magnesium 1.5 L Total Bilirubin 1.2 Direct Bilirubin 0.6 H AST 37 H ALT 34 Alkaline Phosphatase 157 H Troponin I 0.200 H* C-Reactive Prot, Quant 13.5 H B-Natriuretic Peptide < 20 Total Protein 5.9 Albumin 3.6 Globulin 2.3 Albumin/Globulin Ratio 1.6 Triglycerides Cholesterol LDL Cholesterol, Calc HDL Cholesterol Cholesterol/HDL Ratio Amylase 27 L Lipase 23 Beta-Hydroxybutyrate/Acetoacetate 0.8 H Procalcitonin 6.02 H TSH 0.76 Ur Collection Type Clean Catch Urine Color Drk-Yellow A Urine Clarity Turbid A Urine pH 6.0 Ur Specific [place] 1.031 Urine Protein 2+ A Urine Glucose (UA) 4+ A Urine Ketones 1+ A Urine Blood 3+ A Urine Nitrite Positive Urine Bilirubin Negative Urine Urobilinogen (Auto) 2.0 Ur Leukocyte Esterase Positive Urine RBC 424 H Urine WBC 3264 H Ur Squamous Epith Cells 7 H Urine Bacteria 4+ A Urine Yeast (Budding) Present A Ur Culture Indicated? Yes 03/26/25 03/26/25 03:35 11:15 WBC 19.8 H RBC 4.87 Hgb 14.7 Hct 43.5 MCV 89 MCH 30.2 MCHC 33.8 RDW Std Deviation 41.9 Plt Count 236 Neut % (Auto) 87 H Lymph % (Auto) 6 L [place] % (Auto) 6 Eos % (Auto) 0 Baso % (Auto) 0 Neut # (Auto) 17.2 H Lymph # (Auto) 1.2 [place] # (Auto) 1.2 H Eos # (Auto) 0.0 Baso # (Auto) 0.0 Immature Gran # (Auto) 0.17 H Absolute Nucleated RBC 0.00 Immature Gran % 1 H Nucleated RBC % 0 ESR Sodium 140 Potassium 4.4 D Chloride 108 H Carbon Dioxide 19.2 L Anion Gap 13 BUN 10 Creatinine 0.6 Estim Creat Clear Calc 116.2 eGFR > 60 BUN/Creatinine Ratio 17 [address]ucose [address] Glu mg/dL 298 H Hemoglobin A1c 12.0 H Calculated Osmolality 294 Lactic Acid 1.1 Calcium 9.3 Corrected Calcium 9.6 Magnesium 1.9 Total Bilirubin 1.5 H Direct Bilirubin AST 57 H ALT 40 Alkaline Phosphatase 162 H Troponin I 0.232 H* 0.223 H* C-Reactive Prot, Quant B-Natriuretic Peptide Total Protein 5.7 Albumin 3.6 Globulin 2.1 L Albumin/Globulin Ratio 1.7 Triglycerides 96 Cholesterol 113 L LDL Cholesterol, Calc 54 HDL Cholesterol 40 Cholesterol/HDL Ratio 2.8 L Amylase Lipase Beta-Hydroxybutyrate/Acetoacetate Procalcitonin TSH Ur Collection Type Urine Color Urine Clarity Urine pH Ur Specific Dud[place] Urine Protein Urine Glucose (UA) Urine Ketones Urine Blood Urine Nitrite Urine Bilirubin Urine Urobilinogen (Auto) Ur Leukocyte Esterase Urine RBC Urine WBC Ur Squamous Epith Cells Urine Bacteria Urine Yeast (Budding) Ur Culture Indicated? Quality Measures Quality Measures VTE prophylaxis Assessment & Plan Assessment Current Active Medications: Generic Name Dose Route Start Last Admin Trade Name Freq PRN Reason Stop Dose Admin Acetaminophen 650 mg 03/26/25 03:11 Acetaminophen 325 Mg Tablet PO 04/25/25 03:10 Q6H PRN Fever >100.4 or pain 1-3 Hydrocodone Bitart/Acetaminophen 1 tab 03/26/25 03:16 Hydrocodone/Apap 5/325 Tablet PO 03/31/25 03:15 Q4HR PRN PAIN SCALE 4-6 (Moderate Dextrose 25 ml 03/26/25 03:16 Dextrose 50%-Water Inj 50 Ml Syringe IV 04/25/25 03:15 Q15MIN PRN BG 50-70 responsive npo pt Dextrose 50 ml 03/26/25 03:16 Dextrose 50%-Water Inj 50 Ml Syringe IV 04/25/25 03:15 Q15MIN PRN BG <50 OR BG <70 & pt unresponsive Docusate Sodium 100 mg 03/26/25 03:11 Docusate Sod 100 Mg Capsule PO 04/25/25 03:10 QDAY PRN CONSTIPATION Protocol Enoxaparin Sodium 40 mg 03/26/25 09:00 03/26/25 09:50 Enoxaparin Sod Inj 40 Mg/0.4 Ml Syringe SC 04/09/25 08:59 40 mg QDAY KARLA Administration Glucagon 1 mg 03/26/25 03:16 Glucagon Inj 1 Mg Vial IM Q15MIN PRN BG <70, and no IV access Ceftriaxone Sodium 2 gm/ 50 mls @ 100 mls/hr 03/27/25 09:00 Sodium Chloride IV 04/03/25 08:59 QDAY KARLA Insulin Degludec 15 unit 03/26/25 09:00 03/26/25 09:50 Insulin Degludec 5 Unit/0.05 Ml (Per 5 Units) SC 04/25/25 08:59 15 unit QDAY KARLA Administration Insulin Human Lispro 0 unit 03/26/25 13:40 Insulin Lispro (Admelog) 1 Unit/0.01 Ml Unit SC 04/25/25 11:29 AC KARLA Protocol Ondansetron HCl 4 mg 03/26/25 03:11 Ondansetron Inj 2 Mg/Ml Inj 2 Ml IVP 04/25/25 03:10 Q6H PRN NAUSEA OR VOMITING Protocol Sennosides 1 tab 03/26/25 03:11 Senna Tablet PO 04/25/25 03:10 QDAY PRN constipation Protocol Plan 60 y/o F with PMHx significant for tyd-rouqvjn-pgzupazjm diabetes presents from home with chief complaint of dysuria x 1 week and fever/chills x 2 days, admitted for sepsis secondary to pyelonephritis. #Sepsis secondary to #Pyelonephritis Patient presents with chief complaint dysuria x 1 week, fevers and chills x 1 day, nausea and 1 episode of vomiting. Patient also complains of shortness of breath. Labs show WBC 15, lactic acid 4.6, elevated CRP/ESR, Pro-Earl 6, troponin 0.2. Urinalysis shows 4-4 RBCs, 3000 WBCs, 4+ bacteria. CT A/P showed cystitis and bilateral perinephric stranding. On presentation patient tachycardic, tachypneic, temperature 101.2. Patient received 3 L bolus normal saline in the ED. Endorgan damage demonstrated by hypoxia and demand ischemia. Sofa score 2 Plan - Continue Rocephin 2 g IV daily ( 03/25/25)- - O2 as needed to maintain sats greater than 92% - Trend lactate, IVF as needed - Hydrocodone 1 tab p.o. as needed for pain - Blood and urine cultures drawn, follow-up - Telemonitoring #NSTEMI type I vs II #Elevated troponin Patient denies any chest pain, EKG was negative, significant for sinus tachycardia. Elevated troponin is likely secondary to demand ischemia in the context of systemic motor response syndrome and end organ damage demonstrated by hypoxia, tachycardia, tachypnic on admision Troponin on admission was 0.232, now downtrending. Plan - Troponin - Continue to monitor vitals -Hemoglobin A1c -Follow-up urine tox screen - Maintain potassium >4.0 and magnesium >2.0 # Qut-ruiwxca-aktmhcbrw type 2 diabetes mellitus Patient history as stated. On admision glucose 340 and A1c of 12. Patient reports last A1c in August was approximately 10%, not on file. Currently takes metformin at home. - ISS upgraded to step 2 - Started insulin degludec 15 units SC Qday - Carb consistent diet - Diabetes education #Cholelithiasis Abdominal /pelvis CT done on 03/25/25-multiple gallstones, possible gallbladder wall thickening. Patient is made aware of this findings. Currently asymptomatic. Plan - Monitor, follow-up as needed if symptoms develop Hospital management: Lines: peripheral IV Diet: Carb consistent Bowel: Senna GI prophylaxis: None DVT prophylaxis: Lovenox CODE STATUS: Full code Patient seen and assessed under supervision of attending physician and discuss with senior resident Dr. Wong PGY-2 Fatemeh Roman MD PGY-1, Internal Medicine Attending Provider Attestation/Addendum I attest that I was physically present for the evaluation, physical examination, lab and imaging review of the patient with the residents. I discussed the case with the residents and agree with the findings and plans of care as documented above. Wagner Martinez MD
--- NOTE | 2025-03-26 14:42 | PC.CC ---
Notified by Dr. Wong new DM A1c 12+. [facility] Covered [place] [employer] List - no CGM coverage.
--- NOTE | 2025-03-26 15:05 | PC.NURSE ---
pt stated she felt feverish, took her temperature orally and it was 97.6. I gave her a cool damp wash cloth for her head and she was ok with that. Educated pt to continue to communicate with us if she continues to feel feverish or any other issues
--- NOTE | 2025-03-26 16:29 | PC.SS ---
rounding note: iv antibiotics, waiting for culture.
[2025-03-27] VITALS (14 sets, daily range): BP systolic 118–135; BP diastolic 71–85; PULSE 67–106; RESP 18–94; TEMP 36.2–36.7; O2SAT 94–96; BMI 44.4
[2025-03-27 05:50] LABS: Basophils # (Auto) 0.0 Thou/mm3 (0.0-0.2); Basophils % (Auto) 0 % (0-2.5); Eosinophils # (Auto) 0.1 Thou/mm3 (0.0-0.5); Eosinophils % (Auto) 0 % (0-10); Hematocrit 42.1 % (36.0-46.0); Hemoglobin 14.0 g/dL (12.0-16.0); Immature Granulocytes Auto 0.09 Thou/mm3 (0.00-0.00); Lymphocytes # (Auto) 2.1 Thou/mm3 (1.0-4.8); Lymphocytes % (Auto) 12 % (10-50); Mean Corpuscular HGB Conc 33.3 g/dl (31.0-37.0); Mean Corpuscular Hemoglobin 29.9 pg (25.0-35.0); Mean Corpuscular Volume 90 fL (80-100); Monocytes # (Auto) 1.3 Thou/mm3 (0.0-0.8); Monocytes % (Auto) 7 % (0-12); Neutrophils # (Auto) 13.9 Thou/mm3 (1.8-7.7); Neutrophils % (Auto) 80 % (37-80); Nucleated Red Blood Cell # 0.00 Thou/mm3 (0.00-0.00); Nucleated Red Blood Cell % 0 /100 WBC (0); Platelet Count 190 Thou/mm3 (140-440); RDW Standard Deviation 42.7 fL (36.4-46.3); Red Blood Count 4.68 Miln/mm3 (4.00-5.20); White Blood Count 17.5 Thou/mm3 (3.6-11.0)
[2025-03-27 06:24] LABS: Alanine Aminotransferase 31 U/L (10-49); Albumin, Serum 3.4 gm/dL (3.5-5.0); Albumin/Globulin Ratio 1.4 (1.2-2.2); Alkaline Phosphatase 146 U/L (46-116); Anion Gap 10 (7-16); Aspartate Amino Transferase 39 U/L (0-34); BUN/Creatinine Ratio 20 Ratio (12-20); Blood Urea Nitrogen 12 mg/dL (9-23); Calcium 9.9 mg/dL (8.3-10.6); Calcium (Corrected) 10.4 mg/dL (8.5-10.1); Carbon Dioxide 21.9 mMol/L (20.0-31.0); Chloride 106 mMol/L (98-107); Creatinine (Component) 0.6 mg/dL (0.6-1.3); Estimated Creatinine Clearance 118.2 mL/min (>60); Globulin 2.4 gm/dL (2.3-3.5); Glucose 264 mg/dL (74-106); Osmolality,Calculated 284 (275-295); Phosphorous 1.9 mg/dL (2.4-5.1); Potassium 4.7 mMol/L (3.4-5.1); Sodium 138 mMol/L (136-145); Total Protein 5.8 gm/dL (5.7-8.2); eGFR > 60 See Note
[2025-03-27 06:27] LABS: Bilirubin,Total 0.7 mg/dL (0.3-1.2)
[2025-03-27] MEDS: INSULIN LISPRO (AdmeLOG) 1 UNIT/0.01 ML UNIT SC ×3 (07:51→17:48)
[2025-03-27] MEDS: cefTRIAXone 2 GM in SODIUM CHLORIDE 0.9% (Popper) 50 ML IV (08:13)
[2025-03-27] MEDS: ENOXAPARIN SOD INJ 40 MG/0.4 ML SYRINGE SC (08:13)
[2025-03-27] MEDS: INSULIN DEGLUDEC 5 UNIT/0.05 ML (PER 5 UNITS) 15 UNIT SC (08:14)
[2025-03-27] MEDS: INSULIN DEGLUDEC 5 UNIT/0.05 ML (PER 5 UNITS) SC (12:21)
--- NOTE | 2025-03-27 13:45 | ESPR_ITS ---
Documentation for date of: 03/27/25 Subjective Subjective Interval history: No acute event overnight, patient was afebrile. Today patient was seen and examined at bedside. No acute complain. She denies chest pain and shortness of breath, abdominal pain, dysuria, frequency. Vitals were within normal limits ambulating well on room air. A.m. labs reviewed. WBC downtrended to 17.5, Phos 1.9- repleted with Neutro- phos Glucose of 278. Change the dosing degludec from 15 units to 20 units. So patient received the additional 5 units SC today, making the completion of 20 units of the degludec in total. Patient received 3 units of lispro. Will continue to monitor fingerstick glucose level. Urine culture pending Blood culture no growth after 24 hours in 2 bottles. Exam Vital Signs Temp Pulse Resp BP Pulse Ox O2 Del Method O2 Flow Rate 98.1 F 84 18 121/74 96 Room Air 2 03/27/25 11:50 03/27/25 11:50 03/27/25 11:50 03/27/25 11:50 03/27/25 11:50 03/27/25 11:50 03/25/25 23:00 Narrative Exam General: Awake and in no acute distress, obese, conversational and non-toxic appearing. HEENT: Normocephalic, atraumatic, mucous membranes moist. Heart: Regular rate and rhythm, normal S1 and S2, no murmurs. Lungs: Clear to auscultation with no wheezing or crackles. Abdomen: Soft, nondistended, nontender, positive bowel sounds. ?No guarding or rebound tenderness, No CVA tenderness Neurologic: Alert and oriented x3, no gross neurological deficit, and patient able to move all 4 extremities. Extremities: No edema. Skin: No rash or ecchymoses. Objective Labs 03/27/25 04:30 03/27/25 04:30 Labs: Laboratory Results - last 24 hr 03/27/25 04:30 WBC 17.5 H RBC 4.68 Hgb 14.0 Hct 42.1 MCV 90 MCH 29.9 MCHC 33.3 RDW Std Deviation 42.7 Plt Count 190 D Neut % (Auto) 80 Lymph % (Auto) 12 [place] % (Auto) 7 Eos % (Auto) 0 Baso % (Auto) 0 Neut # (Auto) 13.9 H Lymph # (Auto) 2.1 [place]oup # (Auto) 1.3 H Eos # (Auto) 0.1 Baso # (Auto) 0.0 Immature Gran # (Auto) 0.09 H Absolute Nucleated RBC 0.00 Immature Gran % 1 H Nucleated RBC % 0 Sodium 138 Potassium 4.7 Chloride 106 Carbon Dioxide 21.9 Anion Gap 10 BUN 12 Creatinine 0.6 Estim Creat Clear Calc 118.2 eGFR > 60 BUN/Creatinine Ratio 20 Glucose 264 H D Calculated Osmolality 284 Calcium 9.9 Corrected Calcium 10.4 H Phosphorus 1.9 L Total Bilirubin 0.7 D AST 39 H ALT 31 Alkaline Phosphatase 146 H Total Protein 5.8 Albumin 3.4 L Globulin 2.4 Albumin/Globulin Ratio 1.4 Quality Measures Quality Measures VTE prophylaxis Assessment & Plan Assessment Current Active Medications: Generic Name Dose Route Start Last Admin Trade Name Freq PRN Reason Stop Dose Admin Acetaminophen 650 mg 03/26/25 03:11 Acetaminophen 325 Mg Tablet PO 04/25/25 03:10 Q6H PRN Fever >100.4 or pain 1-3 Hydrocodone Bitart/Acetaminophen 1 tab 03/26/25 03:16 Hydrocodone/Apap 5/325 Tablet PO 03/31/25 03:15 Q4HR PRN PAIN SCALE 4-6 (Moderate Dextrose 25 ml 03/26/25 03:16 Dextrose 50%-Water Inj 50 Ml Syringe IV 04/25/25 03:15 Q15MIN PRN BG 50-70 responsive npo pt Dextrose 50 ml 03/26/25 03:16 Dextrose 50%-Water Inj 50 Ml Syringe IV 04/25/25 03:15 Q15MIN PRN BG <50 OR BG <70 & pt unresponsive Docusate Sodium 100 mg 03/26/25 03:11 Docusate Sod 100 Mg Capsule PO 04/25/25 03:10 QDAY PRN CONSTIPATION Protocol Enoxaparin Sodium 40 mg 03/26/25 09:00 03/27/25 08:13 Enoxaparin Sod Inj 40 Mg/0.4 Ml Syringe SC 04/09/25 08:59 40 mg QDAY KARLA Administration Glucagon 1 mg 03/26/25 03:16 Glucagon Inj 1 Mg Vial IM Q15MIN PRN BG <70, and no IV access Ceftriaxone Sodium 2 gm/ 50 mls @ 100 mls/hr 03/27/25 09:00 03/27/25 08:13 Sodium Chloride IV 04/03/25 08:59 100 mls/hr QDAY KARLA Administration Insulin Degludec 20 unit 03/28/25 09:00 Insulin Degludec 5 Unit/0.05 Ml (Per 5 Units) SC 04/27/25 08:59 QDAY KARLA Insulin Human Lispro 0 unit 03/26/25 13:40 03/27/25 11:49 Insulin Lispro (Admelog) 1 Unit/0.01 Ml Unit [place] 04/25/25 11:29 5 unit AC [facility] Administration Protocol Insulin Human Lispro 3 unit 03/27/25 17:00 Insulin Lispro (Admelog) 1 Unit/0.01 Ml Unit [place] 04/26/25 16:59 AC [facility] Ondansetron HCl 4 mg 03/26/25 03:11 Ondansetron Inj 2 Mg/Ml Inj 2 Ml IVP 04/25/25 03:10 Q6H PRN NAUSEA OR VOMITING Protocol Sennosides 1 tab 03/26/25 03:11 Senna Tablet PO 04/25/25 03:10 QDAY PRN constipation Protocol Plan Plan 60 y/o F with PMHx significant for hld-uwiltmq-hazjkygep diabetes presents from home with chief complaint of dysuria x 1 week and fever/chills x 2 days, admitted for sepsis secondary to pyelonephritis. #Sepsis secondary to ( resolving) #Pyelonephritis Patient presents with chief complaint dysuria x 1 week, fevers and chills x 1 day, nausea and 1 episode of vomiting. Patient also complains of shortness of breath. Labs show WBC 15, lactic acid 4.6, elevated CRP/ESR, Pro-Earl 6, troponin 0.2. Urinalysis shows 4-4 RBCs, 3000 WBCs, 4+ bacteria. CT A/P showed cystitis and bilateral perinephric stranding. On presentation patient tachycardic, tachypneic, temperature 101.2. Patient received 3 L bolus normal saline in the ED. Endorgan damage demonstrated by hypoxia and demand ischemia. Sofa score 2 - Symptoms of UT Plan - Continue Rocephin 2 g IV daily ( 03/25/25)- - O2 as needed to maintain sats greater than 92% - Hydrocodone 1 tab p.o. as needed for pain - Pending urine cultures - Blood cultures no growth in 24hrs - Telemonitoring # Sgx-hhdyzty-ejtnxlbxe type 2 diabetes mellitus Patient history as stated. On admision glucose 340 and A1c of 12. Patient reports last A1c in August was approximately 10%, not on file. Currently takes metformin at home. - ISS upgraded to step 2 - Increased insulin degludec 15 units to 20 units SC Qday - Started Insulin lispro 3 units AC - Diabetes education #NSTEMI type I vs II #Elevated troponin (resolved) Patient denies any chest pain, EKG was negative, significant for sinus tachycardia. Elevated troponin is likely secondary to demand ischemia in the context of systemic motor response syndrome and end organ damage demonstrated by hypoxia, tachycardia, tachypnic on admision Troponin on admission was 0.232, now downtrending. Plan - Troponin - Continue to monitor vitals - Maintain potassium >4.0 and magnesium >2.0 #Cholelithiasis Abdominal /pelvis CT done on 03/25/25-multiple gallstones, possible gallbladder wall thickening. Patient is made aware of this findings. Currently asymptomatic. Plan - Monitor, follow-up as needed if symptoms develop Hospital management: Lines: peripheral IV Diet: Carb consistent Bowel: Senna GI prophylaxis: None DVT prophylaxis: Lovenox CODE STATUS: Full code Patient seen and assessed under supervision of attending physician Dr.Bishwakarma Fatemeh Roman MD PGY-1, Internal Medicine Attending Provider Attestation/Addendum I attest that I was physically present for the evaluation, physical examination, lab and imaging review of the patient with the residents. I discussed the case with the residents and agree with the findings and plans of care as documented above. Wagner Martinez MD
[2025-03-27] MEDS: NAPH,KPH MBDB 1 PACKET (1.5 GM) PO (17:49)
[2025-03-27] MEDS: INSULIN LISPRO (AdmeLOG) 1 UNIT/0.01 ML UNIT 3 UNIT SC (17:49)
[2025-03-28] VITALS (8 sets, daily range): BP systolic 125–142; BP diastolic 69–83; PULSE 80–99; RESP 18–94; TEMP 36.4–36.9; O2SAT 95–97; BMI 44.4
[2025-03-28 06:04] LABS: Basophils # (Auto) 0.0 Thou/mm3 (0.0-0.2); Basophils % (Auto) 0 % (0-2.5); Eosinophils # (Auto) 0.1 Thou/mm3 (0.0-0.5); Eosinophils % (Auto) 1 % (0-10); Hematocrit 44.4 % (36.0-46.0); Hemoglobin 15.2 g/dL (12.0-16.0); Immature Granulocytes Auto 0.05 Thou/mm3 (0.00-0.00); Lymphocytes # (Auto) 2.4 Thou/mm3 (1.0-4.8); Lymphocytes % (Auto) 21 % (10-50); Mean Corpuscular HGB Conc 34.2 g/dl (31.0-37.0); Mean Corpuscular Hemoglobin 30.1 pg (25.0-35.0); Mean Corpuscular Volume 88 fL (80-100); Monocytes # (Auto) 1.0 Thou/mm3 (0.0-0.8); Monocytes % (Auto) 9 % (0-12); Neutrophils # (Auto) 7.9 Thou/mm3 (1.8-7.7); Neutrophils % (Auto) 69 % (37-80); Nucleated Red Blood Cell # 0.00 Thou/mm3 (0.00-0.00); Nucleated Red Blood Cell % 0 /100 WBC (0); Platelet Count 209 Thou/mm3 (140-440); RDW Standard Deviation 41.3 fL (36.4-46.3); Red Blood Count 5.05 Miln/mm3 (4.00-5.20); White Blood Count 11.6 Thou/mm3 (3.6-11.0)
[2025-03-28 06:42] LABS: Alanine Aminotransferase 25 U/L (10-49); Albumin, Serum 3.6 gm/dL (3.5-5.0); Albumin/Globulin Ratio 1.3 (1.2-2.2); Alkaline Phosphatase 144 U/L (46-116); Anion Gap 11 (7-16); Aspartate Amino Transferase 22 U/L (0-34); BUN/Creatinine Ratio 16 Ratio (12-20); Bilirubin,Total 1.0 mg/dL (0.3-1.2); Blood Urea Nitrogen 8 mg/dL (9-23); Calcium 10.0 mg/dL (8.3-10.6); Calcium (Corrected) 10.3 mg/dL (8.5-10.1); Carbon Dioxide 26.1 mMol/L (20.0-31.0); Chloride 102 mMol/L (98-107); Creatinine (Component) 0.5 mg/dL (0.6-1.3); Estimated Creatinine Clearance 141.8 mL/min (>60); Globulin 2.7 gm/dL (2.3-3.5); Glucose 228 mg/dL (74-106); Osmolality,Calculated 282 (275-295); Phosphorous 2.0 mg/dL (2.4-5.1); Potassium 3.6 mMol/L (3.4-5.1); Sodium 139 mMol/L (136-145); Total Protein 6.3 gm/dL (5.7-8.2); eGFR > 60 See Note
[2025-03-28] MEDS: ACETAMINOPHEN 325 MG TABLET 650 MG PO (07:27)
[2025-03-28] MEDS: INSULIN LISPRO (AdmeLOG) 1 UNIT/0.01 ML UNIT 3 UNIT SC (07:28)
[2025-03-28] MEDS: INSULIN LISPRO (AdmeLOG) 1 UNIT/0.01 ML UNIT SC (07:28)
[2025-03-28] MEDS: ENOXAPARIN SOD INJ 40 MG/0.4 ML SYRINGE SC (08:00)
[2025-03-28] MEDS: INSULIN DEGLUDEC 5 UNIT/0.05 ML (PER 5 UNITS) 20 UNIT SC (08:00)
[2025-03-28] MEDS: cefTRIAXone 2 GM in SODIUM CHLORIDE 0.9% (Popper) 50 ML IV (08:00)
[2025-03-28] MEDS: NAPH,KPH MBDB 1 PACKET (1.5 GM) PO ×2 (09:55→09:56)
[2025-03-28] MEDS: POTASSIUM CHLORIDE 10% 20 MEQ/15 ML UDC PO (11:04)
--- NOTE | 2025-03-28 11:39 | PC.NURSE ---
pt has been given discharge instructions, she wants to shower before going home
--- NOTE | 2025-03-28 14:11 | ESDS_ITS ---
<Statement entered by Allegra Santana MD - 03/28/25 16:05> Patient was seen and examined by me personally. I have reviewed the below documentation by the team resident and agree with its findings. Discharge plan was discussed with the attending, Dr. Wagner Martinez MD. 60-year-old female with past medical history of diabetes mellitus admitted to [facility] for dysuria fevers chills was found to be septic and was admitted for sepsis secondary to pyelonephritis. CT abdomen pelvis showed bilateral nephric stranding, urine cultures showed E. coli, blood culture unremarkable. Patient's hemoglobin A1c significantly elevated at 12, patient was provided with diabetic education further plan is to discharge patient home on Macrobid to complete treatment for complicated UTI with pyelonephritis. Patient will be discharged on insulin and metformin, patient to follow-up outpatient with primary care physician to optimize insulin will be discharged with glucometer. Patient is stable for discharge, responded well to hospital treatment. Allegra Santana MD Internal Medicine, PGY-2 Planned Discharge Date 03/28/25 DS: Providers Provider Date of admission: 03/26/25 03:11 Primary care physician: Physician No Primary/Family Admitting Provider: Mark Lewis MD Attending Provider on Admission: Mark Lewis MD Consults: 03/26/25 14:40 Referral Registered Dietitian Routine Comment: Attending Provider on DC: Wagner Martinez MD Discharging Provider: Wagner Martinez MD DS: Diagnosis Problem List Completed Was Problem List Reviewed/Reconciled?: Yes Hospital Course Hospital Course Hospital course: Summary: Marycarmen Wen is a 60 y/o F with PMHx significant for pmn-iycxtcx-yzxjvyzka diabetes presents from home with chief complaint of dysuria x 1 week and fever/chills x 2 days, admitted for sepsis secondary to pyelonephritis. On admission, patient presented with sepsis with endorgan damage being elevated troponins, NSTEMI type II, found to have cystitis and bilateral primary stranding on CTAP. Urine cultures grew E. coli with no growth on blood cultures. Patient was treated with antibiotics and pain medication, with resolution of symptoms and white count. Troponins eventually down trended and resolved to be within normal limits. During hospital stay, patient was also found to have a hemoglobin A1c of 12, was started on insulin and will be discharged on insulin. Of note, patient was also found to have asymptomatic cholelithiasis on CTAP, recommend follow-up outpatient. On discharge, patient is hemodynamically stable, labs and vitals reviewed to be stable and patient is feeling ready to go home. Imaging: CTAP and chest showed bilateral prominent perinephric stranding suspicious for urinary tract infection, cystitis pattern with urinary bladder wall thickening up to 8 mm, multiple gallstones Discharge Recommendations: - Please take all medications as prescribed - START Antibiotic Treatment with Macrobid for 7 more days - Use Tresiba 20 units daily and Lispro 6 units with meals - Take Neutra-Phos packets at home as your phosphate levels are found to be low in the hospital - Please follow up with your PCP within one week of discharge - If your symptoms worsen, please seek immediate medical attention and return to your nearest emergency room. - If you do not have a PCP, you may follow up at the [facility] at [address] [place] [address] [address], [facility] [address], Hospital Diagnoses: #Sepsis resolved 2/ #Pyelonephritis #Cob-tfmtlzd-uqbkevwqe type 2 diabetes mellitus #NSTEMI II #Elevated troponin (resolved) #Cholelithiasis Aida Rodríguez, DO Internal Medicine, PGY-1 Status at Discharge Cognitive/behavioral status at discharge: Stable Functional status at discharge: independent ambulation Overall status at discharge: patient is back to baseline Time Spent with Patient Time attestation: Total time spent providing and/or coordinating discharge services: 32 min Time spent: Greater than 30 minutes Exam Vital Signs Temp Pulse Resp BP Pulse Ox O2 Del Method O2 Flow Rate 97.5 F 80 18 130/78 95 Room Air 2 03/28/25 12:03/28/25 12:03/28/25 12:03/28/25 12:03/28/25 12:03/28/25 12:03/25/25 23:00 Narrative Exam GENERAL: AOx3, no acute distress HEENT: NC/AT, mucous membranes moist, bilateral sclera anicteric CARDIOVASCULAR: regular rate and rhythm, S1/S2 present, no murmurs appreciated PULMONARY: clear to auscultation bilaterally, no rales/rhonchi/wheezes ABDOMINAL: soft, non-tender, non-distended, no rebound/guarding, bowel sounds present EXTREMITIES: no peripheral edema SKIN: warm and dry, intact, no rashes NEURO: CN II-XII grossly intact, no focal deficits, alert, following commands Discharge Plan Plan Patient Disposition: HOME (Self Care) Patient condition on transfer: Stable Care Plan Goals: -Complete Antibiotic Treatment with Macrobid -Use Tresiba 20 units daily and Lispro 6 units with meals -Follow up with PCP in 1-2 weeks, optimize blood glucose levels outpatient Follow-up in [facility] in 1 to 2 weeks if you don't have a PCP. Call [phone] to make an appointment Address: [facility], [address], [address], [place], [address] -Return to ED if symptoms return or worsen. Prescriptions/Referrals Prescriptions/Med Rec: New nitrofurantoin monohyd/m-cryst [Macrobid] 100 mg capsule 100 mg PO BID 7 Days Qty: 14 0RF Rx Instructions: must administer with a meal/food insulin degludec [Tresiba FlexTouch U-100] 100 unit/mL (3 mL) insulin pen 20 unit subcut QDAY Qty: 15 0RF insulin lispro [Admelog SoloStar U-100 Insulin] 100 unit/mL insulin pen 6 unit subcut TID Qty: 15 0RF (DME) pen needle, diabetic 31 gauge x 1/4 needle See Rx Instructions .Route Qty: 100 0RF Rx Instructions: As directed (DME) Accu-Chek Guide test strips Strip See Rx Instructions .Route Qty: 100 0RF Rx Instructions: As directed (DME) blood-glucose meter [Accu-Chek Guide Glucose Meter] Misc See Rx Instructions .Route Qty: 1 0RF Rx Instructions: As directed V-Xtdg-Wtkaeoc 250 mg tablet 1 tab PO BID Qty: 3 0RF Continued metformin 500 mg tablet 500 mg PO BID Patient Comments: TAKE 1 TABLET BY MOUTH TWICE A DAY WITH A MEAL FOR 90 DAYS azelastine 0.05 % drops 1 drp OPHTHALMIC (EYE) QDAY PRN (Reason: Allergies) ergocalciferol (vitamin D2) 1,250 mcg (50,000 unit) capsule 1,250 mcg PO .weekly Discontinued naproxen 500 mg tablet 500 mg PO Q12H PRN (Reason: pain) Patient Comments: TAKE 1 TABLET BY MOUTH EVERY 12 HOURS NEEDED FOR PAIN WTIH FOOD OR MILK Referrals: Aida Rodríguez, STUDENT RE [Resident] - No Primary/Family,Physician [Primary Care Provider] - Patient/Caregiver Discharge Instructions Discharge Activity: activity as tolerated Education Materials: Diabetes: Caring for Your Body, Diabetes: Activity Tips, ED Pyelonephritis, Female (Adult) Print Language: Kazakh Stand Alone Forms: [employer] Award Info., Patient Portal Info Letter Discharge Order Discharge Orders: Discharge (Routine); Ordered 03/28/25 Ordered By: Allegra Santana Quality Discharge Quality Measures VTE prophylaxis MD Attestestation MD Attestation I attest that I was physically present for the evaluation, physical examination, lab and imaging review of the patient with the residents. I discussed the case with the residents and agree with the findings and plans of care as documented above. At bedside today, patient states she is feeling well and denies any new complaints. Vital signs are stable. Continues to have mild frequency but denies any burning micturition. Phosphorus was 2.0, repleted accordingly. She also received potassium repletion. Blood glucose in the low 200s. Patient educated extensively regarding glucose control. Urine culture grew E. coli, sensitive to multiple antibiotics. Stable to be discharged on oral antibiotics. We will also start her on insulin regimen along with her home metformin. Wagner Martinez MD
== END 2025-03-28 12:07 | disposition home or self-care (01) | DRG 871 ==
LOC: SERX 03-26 03:18 → SERHOLD 03-26 03:51 → S2NX 03-26 08:03 → S3NX 03-26 21:33 → S3SX 03-28 08:25
PROVIDERS: Admitting Provider Student in an Organized Health Care Education/Training Program; Emergency Provider Emergency Medicine; Visit Provider Student in an Organized Health Care Education/Training Program
DX: A41.9 Sepsis, unspecified organism (principal); I21.A1 Myocardial infarction type 2; N12 Tubulo-interstitial nephritis, not specified as acute or chronic; E87.20 Acidosis, unspecified; Z68.41 Body mass index [BMI] 40.0-44.9, adult; N30.90 Cystitis, unspecified without hematuria; E66.9 Obesity, unspecified; K80.20 Calculus of gallbladder without cholecystitis without obstruction; E11.65 Type 2 diabetes mellitus with hyperglycemia; R09.02 Hypoxemia; J98.01 Acute bronchospasm; E83.42 Hypomagnesemia; R65.20 Severe sepsis without septic shock; Z79.84 Long term (current) use of oral hypoglycemic drugs
CPT/HCPCS: 36415; 71045; 71250; 74176; 80053; 80061; 81001; 82010; 82150; 82248; 83036; 83605; 83690; 83735; 83880; 84100; 84145; 84443; 84484; 85025; 85652; 86140; 87040; 87077; 87086; 87186; 87400; 87811; 93005; 93225; 94640; 99284; A9270; J0131; J0696; J1650; J1815; J2405; J2919; J3475; J7030; J7050